=== PATIENT | male | born 1950 | race African-American/Black ===

== ENCOUNTER 2017-07-02 12:39 | Emergency (ER) | payer OTHER, MEDICARE ==
[~2017-07-02] VITALS: Ht 182.9 cm; Wt 79.4 kg
[2017-07-02 12:39] VITALS: BP 121/72
[~2017-07-02 12:39] MED LIST: FLONASE 0.05%50 MCG NASAL; PREDNISONE50 MG PO; THEO-24300 MG PO; VENTOLIN HFA INH8 GM IH
[2017-07-02] MEDS ORDERED: MOBIC7.5 MG PO (12:54)
== END 2017-07-02 13:34 | disposition home or self-care (01) ==
LOC: ER 12:39
DX: S93.401A Sprain of unspecified ligament of right ankle, initial encounter (principal); J45.909 Unspecified asthma, uncomplicated; X50.9XXA Other and unspecified overexertion or strenuous movements or postures, initial encounter; Y93.89 Activity, other specified; Y92.89 Other specified places as the place of occurrence of the external cause; Y99.8 Other external cause status

== ENCOUNTER → 2019-09-20 | Outpatient (CLI) | payer OTHER, MEDICARE ==
[~2019-09-20] MED LIST changes: +MOBIC7.5 MG PO
== END ==
LOC: NUC 09:31
PROVIDERS: ATTEND Internal Medicine
DX: M85.88 Other specified disorders of bone density and structure, other site (principal); M16.11 Unilateral primary osteoarthritis, right hip